=== PATIENT | female | born 2005 | race Caucasian/White ===

== ENCOUNTER 2023-02-03 20:12 | Emergency (ER) | payer OTHER ==
[~2023-02-03] VITALS: Ht 157.5 cm; Wt 68.2 kg
[2023-02-03 20:18] VITALS: BP 123/87; PULSE 91; TEMP 98.3
== END 2023-02-03 21:15 | disposition home or self-care (01) ==
LOC: COL.ER 20:12
DX: T63.621A Toxic effect of contact with other jellyfish, accidental (unintentional), initial encounter (principal); Z28.310 Unvaccinated for COVID-19